=== PATIENT | male | born 1985 | race Caucasian/White ===

== ENCOUNTER 2025-07-04 20:05 | Emergency (ER) | payer SELFPAY ==
[2025-07-04] VITALS (13 sets, daily range): BP systolic 133–170; BP diastolic 90–105; PULSE 59–95; RESP 14–19; TEMP 36.3; O2SAT 94–99; BMI 32.8
--- NOTE | 2025-07-04 20:28 | ED.ABDPAIN ---
HPI - Abdominal Pain General Chief Complaint: Abdominal Pain Stated Complaint: poss ruptured appendix Time Seen by Provider: 07/04/25 20:25 Source: patient Mode of arrival: Ambulatory History of Present Illness HPI narrative: Patient here for right upper quadrant epigastric pain that does not radiate. He has had nausea and vomiting. Has difficulty with urination/painful urination. No black or bloody stools. Patient drinks alcohol daily. Patient just returned for [employer] trip and alcohol drinking. Patient denies any prior history of abdominal surgery other than hernias. No prior history of pancreatitis or cholelithiasis cholecystitis. No history of appendectomy. 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 Related Data Previous Rx's ?Medication ?Instructions ?Recorded ondansetron 4 mg disintegrating 4 mg PO Q6H PRN nausea and 07/04/25 tablet vomiting #20 tabs pantoprazole 40 mg tablet,delayed 40 mg PO DAILY #30 tabs 07/04/25 release (Protonix) sucralfate 1 gram tablet (Carafate) 1 g PO QAC #20 tabs 07/04/25 Allergies Allergy/AdvReac Type Severity Reaction Status Date / Time No Known Drug Allergies Allergy Verified 07/04/25 20:12 Review of Systems Review of Systems Narrative: GENERAL: Negative chills, fatigue, malaise, fever, sweats. HEENT: Negative sinus pain, ear pain, sore throat RESPIRATORY: Negative dyspnea, cough CARDIOVASCULAR: Negative chest pain, palpitations GASTROINTESTINAL: Positive vomiting, nausea, abdominal pain : Negative dysuria, frequency, hematuria MUSCULOSKELETAL: Negative muscle or bony pain SKIN: Negative rash, skin lesions NEUROLOGIC: Negative weakness, numbness ROS Unobtainable: All systems reviewed & are unremarkable except as noted in HPI and below Patient History Social History Smoking Status: Former smoker Smoking Status: Former smoker tobacco type: cigarettes and vaping Alcohol type: hard liquor and other Exam Narrative Exam Narrative: GENERAL: in no distress, not toxic not dyspneic HEAD: Normocephalic. EYES: Pupils equal round ENT: Mucous membranes moist. NECK: Trachea midline. CARDIOVASCULAR: Regular rate and rhythm RESPIRATORY: Clear to auscultation. Breath sounds equal bilaterally. No wheezes, rales, or rhonchi. GASTROINTESTINAL: Abdomen soft, mild epigastric tenderness no peritoneal signs no guarding no rebound bowel sounds are present. No CVA tenderness EXTREMITIES: No gross deformities. BACK: No flank tenderness. NEURO: AOx4. Clear speech SKIN: Warm and dry PSYCH: Not anxious, is cooperative Initial Vital Signs Initial Vital Signs: Vital Signs Temperature 97.4 F L 07/04/25 20:12 Pulse Rate 95 H 07/04/25 20:12 Respiratory Rate 18 07/04/25 20:12 Blood Pressure 159/105 H 07/04/25 20:12 Pulse Oximetry 99 07/04/25 20:12 Oxygen Delivery Method Room Air 07/04/25 20:12 Course Orders Ordered: Discontinued Medications Al Hydrox/Mg Hydrox/Simethicone 20 ml/ Lidocaine HCl 15 ml 0 ml PO NOW ONE Stop: 07/04/25 23:28 Last Admin: 07/04/25 23:36 Dose: 35 ml Documented By: ORLIN Hydromorphone HCl (Hydromorphone 1 Mg/Ml Syringe) 1 mg IV NOW ONE Stop: 07/04/25 20:33 Last Admin: 07/04/25 20:50 Dose: 1 mg Documented By: ORLIN Sodium Chloride (Normal Saline 0.9%) 1,000 mls @ 1,000 mls/hr IV BOLUS ONE Stop: 07/04/25 21:28 Last Infusion: 07/04/25 22:03 Dose: Infused Documented By: Admin: 07/04/25 20:47 Dose: 1,000 mls/hr Documented By: ORLIN Ondansetron HCl (Ondansetron 4 Mg/2 Ml Inj) 4 mg IV NOW PRN PRN Reason: Nausea And Vomiting Ondansetron HCl (Ondansetron 4 Mg Odt) 4 mg PO NOW PRN PRN Reason: Nausea And Vomiting Pantoprazole Sodium (Pantoprazole 40 Mg Vial) 40 mg IV NOW ONE Stop: 07/04/25 20:33 Last Admin: 07/04/25 20:48 Dose: 40 mg Documented By: ORLIN Vital Signs Vital signs: Vital Signs - 8 hr 07/04/25 20:12 07/04/25 21:17 07/04/25 21:18 Temperature 97.4 F L Pulse Rate 95 H 68 Respiratory Rate 18 Blood Pressure 159/105 H 160/101 H Pulse Oximetry 99 96 Oxygen Delivery Method Room Air 07/04/25 21:18 07/04/25 21:19 07/04/25 21:19 Temperature Pulse Rate 72 69 Respiratory Rate Blood Pressure 170/102 H Pulse Oximetry 96 97 Oxygen Delivery Method Room Air 07/04/25 21:30 07/04/25 21:31 07/04/25 21:31 Temperature Pulse Rate 71 64 Respiratory Rate 19 17 Blood Pressure 148/101 H Pulse Oximetry 96 96 Oxygen Delivery Method Room Air 07/04/25 22:00 07/04/25 22:03 07/04/25 22:03 Temperature Pulse Rate 66 62 Respiratory Rate 15 Blood Pressure 133/90 Pulse Oximetry 96 96 Oxygen Delivery Method 07/04/25 22:30 07/04/25 22:31 07/04/25 22:31 Temperature Pulse Rate 69 61 Respiratory Rate 16 Blood Pressure 140/92 H Pulse Oximetry 96 96 Oxygen Delivery Method Room Air 07/04/25 23:00 07/04/25 23:00 Temperature Pulse Rate 59 L Respiratory Rate 14 Blood Pressure 155/98 H Pulse Oximetry 95 Oxygen Delivery Method Room Air MDM - Abdominal Pain Lab Data 07/04/25 20:25 07/04/25 20:25 Labs: Lab Results 07/04/25 Range/Units 20:25 WBC 8.1 (4.5-11.0) X10^3/uL RBC 5.30 (4.5-5.9) X10^6/uL Hgb 17.2 (13.5-17.5) g/dL Hct 48.8 (41-53) % MCV 92.0 (80-100) fL MCH 32.5 (26-34) PG MCHC 35.3 (30-36) % RDW 13.3 (11.6-14.8) % Plt Count 237 (150-400) X10^3/uL Neut % (Auto) 64.6 (50-75) % Lymph % (Auto) 25.8 (25-40) % [place] % (Auto) 6.3 (3-14) % Eos % (Auto) 2.6 (2-4) % Baso % (Auto) 0.7 (0-2) % Neut # (Auto) 5200 (5852-2571) /uL Lymph # (Auto) 2100 (1897-2019) /uL [place] # (Auto) 500 (0-900) /uL Eos # (Auto) 200 (0-450) /uL Baso # (Auto) 100 (0-100) /uL Sodium 140 (137-145) mmol/L Potassium 3.9 (3.4-5.1) mmol/L Chloride 104 (98-107) mmol/L Carbon Dioxide 29 (22-32) mmol/L BUN 13 (9-20) mg/dL Creatinine 0.91 (0.66-1.25) mg/dL Estimated GFR > 60 (>60) mL/min BUN/Creatinine Ratio 14.3 (6-22) Glucose 114 H (70-99) mg/dL Calcium 9.2 (8.4-10.2) mg/dL Total Bilirubin 0.4 (0.2-1.3) mg/dL AST 25 (17-59) IU/L ALT 36 (<50) IU/L Alkaline Phosphatase 63 (38-126) U/L Total Protein 7.2 (6.3-8.2) g/dL Albumin 4.3 (3.5-5.0) g/dL Globulin 2.9 (1.7-4.1) g/dL Albumin/Globulin Ratio 1.5 (1.0-2.8) Lipase 135 (23-300) U/L Ethyl Alcohol < 10 (<10) mg/dL Imaging Data CT scan - abdomen/pelvis: Radiologist's Impression: [place] [id number] CT Scan Report Signed Patient: Dorian Norwood MR#: [id number] : 1985 Acct:[id number] Age/Sex: 39 / M Date of Service: 07/04/25 Loc: ED Accession Number: [id number] Procedure: CT abdomen pelvis w con Ordering Provider: Guevara Casanova MD PROCEDURE: CT ABDOMEN PELVIS W CON INDICATIONS: Upper abdominal pain TECHNIQUE: After the administration of intravenous contrast, axial sections acquired from the lung bases to the pubic symphysis. Coronal and sagittal reformats were performed. For radiation dose reduction, the following was used: automated exposure control, adjustment of mA and/or kV according to patient size. COMPARISON: None. FINDINGS: Image quality: Diagnostic. Lower Chest: No significant findings. ABDOMEN: Liver: No solid mass. Liver measures 22.2 cm with steatosis. Gallbladder: No radiopaque gallstones or wall thickening. Biliary ducts: No biliary dilation. Pancreas: No ductal dilation. Spleen: Size is within normal limits. Adrenal Glands: No adrenal nodules. Kidneys and Ureters: No hydronephrosis. No solid mass. No complex renal cystic lesion which requires follow up. Stomach and Bowel: Normal colonic caliber, without significant wall thickening. Appendix is normal. Moderate colonic stool. Minimal diverticula without inflammatory change. Peritoneum: No abnormal intraperitoneal fluid. No free air. Ventral Wall: Fat containing ventral hernia. Abdominal Nodes: No retroperitoneal or mesenteric adenopathy by size criteria. Vessels: Aorta and inferior vena cava are normal in size. PELVIS: Pelvic Organs: Unremarkable. Bladder: No bladder wall thickening, accounting for underdistention. Pelvic Nodes: No enlarged lymph nodes. Miscellaneous: No inguinal hernias are seen. Bones: No aggressive osseous abnormality. IMPRESSION: Diverticulosis. Hepatomegaly with steatosis. Dictated by: Nancy Tong M.D. on 07/04/2025 at 21:38 Approved by: Nancy Tong M.D. on 07/04/2025 at 21:40 MDM Narrative Medical decision making narrative: Patient here for right upper quadrant epigastric pain that does not radiate. He has had nausea and vomiting. Has difficulty with urination/painful urination. No black or bloody stools. Patient drinks alcohol daily. Patient just returned for [employer] trip and Dilaudid alcohol drinking. Patient denies any prior history of abdominal surgery other than hernias. No prior history of pancreatitis or cholelithiasis cholecystitis. No history of appendectomy. 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 MDM After history and exam, CBC CMP lipase alcohol level CT abdomen pelvis Dilaudid Zofran normal saline urinalysis Differential considered: Includes but not limited to pancreatitis cholecystitis cholelithiasis gastritis Medical records reviewed: No recent visit for this complaint Lab Test results independently reviewed as above. Pertinent findings: WBC 8.1 hemoglobin 17 sodium 140 potassium 3.9 GFR greater than 60 glucose 114 AST 25 ALT 36 lipase 135 alcohol negative Imaging studies independently reviewed: CT abdomen pelvis no acute finding Re-evaluations: 11:28 p.m.. Updated patient results and findings and exam. Pain has improved but not resolved but much better he states. Reviewed some likely gastritis and alcohol likely made it worse. Prescriptions have been provided. He is calling for package delivery driver. Primary clinic referral provided. He desires discharge home. Discussion: Appropriate for discharge home. Exam is reassuring. Return precautions reviewed with patient. Pain is controlled. He desires discharge home. Diagnosis: Epigastric pain Discharge Plan Departure Patient Disposition: Home Clinical Impression: Abdominal pain, epigastric Instructions: DI for Gastritis, DI for Epigastric Pain Activity Restrictions/Additional Instructions: Your exam laboratory studies and CAT scan imaging are reassuring. Is likely you have gastritis causing your pain and nausea. Prescriptions have been provided for you. Please do not drink alcohol. No fried fatty greasy foods spicy or carbonated drinks as this will worsen your stomach pain. See family doctor for re-evaluation. Please call provided primary care provider phone number to obtain family doctor, . You may also call provided general surgery services for possible endoscopy of the stomach. No driving operating machinery tonight. Prescriptions: New sucralfate [Carafate] 1 gram tablet 1 g PO QAC Qty: 20 0RF pantoprazole [Protonix] 40 mg tablet,delayed release (DR/EC) 40 mg PO DAILY Qty: 30 0RF ondansetron 4 mg tablet,disintegrating 4 mg PO Q6H PRN (Reason: nausea and vomiting) Qty: 20 0RF Referrals: Jose R Paulino DO [Physician, General Surgery] Stand Alone Forms: Patient Portal/API
[2025-07-04 20:33] LABS: Add Manual Diff / Slide Review NO; Hematocrit 48.8 % (41-53); Hemoglobin 17.2 g/dL (13.5-17.5); Lymphocytes Absolute Auto 2100 /uL (1100-4500); Mean Corpuscular HGB Conc 35.3 % (30-36); Mean Corpuscular Hemoglobin 32.5 PG (26-34); Mean Corpuscular Volume 92.0 fL (80-100); Platelet Count 237 X10^3/uL (150-400)
[2025-07-04 20:47] LABS: Alanine Aminotransferase 36 IU/L (<50); Albumin 4.3 g/dL (3.5-5.0); Albumin Globulin Ratio 1.5 (1.0-2.8); Alkaline Phosphatase 63 U/L (38-126); Blood Urea Nitrogen 13 mg/dL (9-20); Calcium 9.2 mg/dL (8.4-10.2); Carbon Dioxide 29 mmol/L (22-32); Chloride 104 mmol/L (98-107); Estimated Glomerular Filt Rate > 60 mL/min (>60); Globulin 2.9 g/dL (1.7-4.1); Glucose 114 mg/dL (70-99); HEMOLYSIS 16 (0-50); Lipase 135 U/L (23-300); Potassium 3.9 mmol/L (3.4-5.1); Sodium 140 mmol/L (137-145); Total Protein 7.2 g/dL (6.3-8.2)
[2025-07-04] MEDS: SODIUM CHLORIDE 0.9% 1,000 ML 1000 ML IV (20:47)
[2025-07-04] MEDS: PANTOPRAZOLE 40 MG VIAL IV (20:48)
[2025-07-04 20:56] LABS: Ethanol (ETOH) < 10 mg/dL (<10)
[2025-07-04] MEDS: MAG HYDROX/ALUMINUM/SIMETH SUS 20 ML, LIDOCAINE VISCOUS 2% 15 ML PO (23:36)
== END 2025-07-04 23:45 | disposition home or self-care (01) ==
PROVIDERS: Emergency Provider Emergency Medicine
DX: R10.13 Epigastric pain (principal); R30.0 Dysuria
CPT/HCPCS: 36415; 74177; 80053; 80320; 83690; 85025; 96361; 96374; 96375; 99284; J1171; J2470; Q9967

== ENCOUNTER 2025-09-26 02:31 | Emergency (ER) | payer SELFPAY ==
[2025-09-26 02:43] VITALS: PULSE 113; O2SAT 94
[2025-09-26 02:44] VITALS: BP 149/100; BP 150/103; PULSE 106; O2SAT 94
[2025-09-26 02:45] VITALS: BP 150/103; PULSE 104; RESP 20; TEMP 37; O2SAT 95; BMI 32.3
--- NOTE | 2025-09-26 03:42 | PC.NURSE ---
@ [id number] this nurse witnessed patient get up and walk out of his exam room stating I am out of here you all aren't going to do anything anyways. Advised pt that we do have other patients and we will get to him as soon as possible.
== END 2025-09-26 04:02 | disposition left against medical advice (07) ==
PROVIDERS: Emergency Provider Emergency Medicine
DX: Z53.21 Procedure and treatment not carried out due to patient leaving prior to being seen by health care provider (principal)
CPT/HCPCS: 99281